=== PATIENT | male | born 2000 | race African-American/Black ===

== ENCOUNTER 2023-11-06 07:18 | Emergency (ER) | payer SELFPAY ==
[~2023-11-06] VITALS: Ht 177.8 cm; Wt 100.9 kg
[2023-11-06 11:15] VITALS: BP 131/78; PULSE 75; TEMP 99.6
[2023-11-06] MEDS ORDERED: Acetaminophen 500 MG TAB PO ONE (11:15)
== END 2023-11-06 11:18 | disposition home or self-care (01) ==
LOC: COL.ER 07:18
DX: J06.9 Acute upper respiratory infection, unspecified (principal)